=== PATIENT | female | born 1970 | race Two or more races ===

== ENCOUNTER 2016-10-29 21:57 | Emergency (ER) | payer BC ==
[~2016-10-29] VITALS: Ht 167.6 cm; Wt 63.5 kg
[~2016-10-29 21:57] MED LIST: GLUC-105; LANC-268; METF-370 PO; PREN-96 PO
[2016-10-29 22:02] VITALS: BP 134/84
== END 2016-10-30 03:31 | disposition left against medical advice (07) ==
LOC: ER 22:02
DX: R10.9 Unspecified abdominal pain (principal); R19.7 Diarrhea, unspecified; R11.2 Nausea with vomiting, unspecified; Z53.21 Procedure and treatment not carried out due to patient leaving prior to being seen by health care provider

== ENCOUNTER 2020-01-08 15:58 | Emergency (ER) | payer BC, OTHER ==
[~2020-01-08] VITALS: Ht 172.7 cm; Wt 90.7 kg
[2020-01-08] MEDS ORDERED: SODIUM CHLORIDE 0.9% 1,000 ML IV ONE (16:06)
[2020-01-08 16:57] LABS: Basophils # (auto) 0 10 ^3/uL (0-0.2); Basophils % (auto) 0.4 % (0.0-2.0); Eosinophils # (auto) 0.2 10 ^3/uL (0-0.8); Eosinophils % (auto) 2.7 % (0.0-7.0); Hemoglobin 13.7 g/dL (12.2-16.2); Lymphocytes # (auto) 2.9 10 ^3/uL (0.4-5.4); Lymphocytes % (auto) 38.3 % (10.0-50.0); Mean Corpuscular Hemoglobin 28.9 pg (28.0-32.0); Mean Corpuscular Hgb Conc. 33.5 g/dL (32.0-36.0); Mean Corpuscular Volume 86.3 fL (80.0-100.0); Monocytes # (auto) 0.5 10 ^3/uL (0-1.3); Monocytes % (auto) 6.2 % (0.0-12.0); Neutrophils % (auto) 52.4 % (37.0-80.0); Platelet Count (auto) 208 10^3/uL (140-450); Red Blood Cells 4.75 10^6/uL (4.0-5.20); Red Cell Distribution Width 13.6 % (11.8-14.3); White Blood Cell 7.5 10^3/uL (4.4-10.8)
[2020-01-08 17:11] LABS: Anion Gap 7 (5-15); Blood Urea Nitrogen 14 mg/dL (7-18); Calcium 8.7 mg/dL (8.5-10.1); Carbon Dioxide 24 mmol/L (21-32); Chloride 108 mmol/L (98-107); Glucose 94 mg/dL (74-106); Potassium 3.4 mmol/L (3.5-5.1); Sodium 139 mmol/L (136-145)
[2020-01-08 17:16] LABS: Alanine Aminotransferase 26 U/L (13-56); Alkaline Phosphatase 78 U/L (45-117); Aspartate Aminotransferase 19 U/L (15-37); BUN/Creatinine Ratio 17.7; Bilirubin, Total 0.4 mg/dL (0.2-1.0); GFR African American 99 mL/min; GFR Non-African American 82 mL/min; Total Protein 7.6 g/dL (6.4-8.2)
[2020-01-08] MEDS ORDERED: ASPirin 81 mg TAB PO ONE (17:30)
[2020-01-08] MEDS ORDERED: POTASSIUM EFFERVESENT TAB 25 MEQ PO ONE (17:30)
[2020-01-08] MEDS: LORazepam 2MG/ML-1ML VIAL IV ONE (17:58)
[2020-01-08 17:59] VITALS: BP 158/84
[2020-01-08] MEDS ORDERED: LORazepam 2MG/ML-1ML VIAL IM ONE (18:00)
== END 2020-01-08 18:05 | disposition home or self-care (01) ==
LOC: EDBD 15:58 → ER 15:58
DX: R07.89 Other chest pain (principal); E87.6 Hypokalemia; F41.9 Anxiety disorder, unspecified; E11.9 Type 2 diabetes mellitus without complications; Z79.899 Other long term (current) drug therapy
CPT/HCPCS: 36415; 71045; 80053; 84484; 85025; 93005; 96372; 99285; J2060

== ENCOUNTER 2023-10-19 15:22 | Emergency (ER) | payer OTHER ==
[~2023-10-19] VITALS: Ht 175.3 cm; Wt 77.0 kg
[2023-10-19 16:34] LABS: Basophils # (auto) 0 10 ^3/uL (0-0.2); Basophils % (auto) 0.6 % (0.0-2.0); Eosinophils # (auto) 0.1 10 ^3/uL (0-0.8); Eosinophils % (auto) 2.2 % (0.0-7.0); Hematocrit 42.8 % (36.0-46.0); Hemoglobin 14.5 g/dL (12.2-16.2); Lymphocytes # (auto) 2.6 10 ^3/uL (0.4-5.4); Lymphocytes % (auto) 41.4 % (10.0-50.0); Mean Corpuscular Hemoglobin 28.8 pg (28.0-32.0); Mean Corpuscular Hgb Conc. 33.9 g/dL (32.0-36.0); Mean Corpuscular Volume 84.8 fL (80.0-100.0); Monocytes # (auto) 0.4 10 ^3/uL (0-1.3); Monocytes % (auto) 6.1 % (0.0-12.0); Neutrophils # (auto) 3.1 10 ^3/uL (1.6-8.6); Neutrophils % (auto) 49.7 % (37.0-80.0); Nucleated Red Blood Cells % 0.1 %; Red Blood Cells 5.04 10^6/uL (4.0-5.20); Red Cell Distribution Width 13.3 % (11.8-14.3); White Blood Cell 6.2 10^3/uL (4.4-10.8)
[2023-10-19 16:49] LABS: Alanine Aminotransferase 39 U/L (7-40); Albumin 4.7 g/dL (3.2-4.8); Alkaline Phosphatase 127 U/L (46-116); Anion Gap 7 (5-15); Aspartate Aminotransferase 17 U/L (13-40); BUN/Creatinine Ratio 15.7 (10.0-20.0); Blood Urea Nitrogen 14 mg/dL (9-23); Calcium 10.3 mg/dL (8.5-10.1); Carbon Dioxide 27 mmol/L (20-30); Chloride 103 mmol/L (98-107); Glucose 326 mg/dL (74-106); Potassium 3.9 mmol/L (3.5-5.1); Sodium 137 mmol/L (136-145)
[2023-10-19 16:50] LABS: Bilirubin, Total 0.6 mg/dL (0.2-1.0); Total Protein 7.5 g/dL (5.7-8.2)
[2023-10-19] MEDS: SODIUM CHLORIDE 0.9% 1,000 ML IV ONE (17:25)
[2023-10-19 17:27] VITALS: BP 140/87; PULSE 73; RESP 20; TEMP 98.1; O2SAT 97
[2023-10-19] MEDS: diphenhdrAMINE HCL 50 MG/1 ML VL IV ONE (17:44)
[2023-10-19] MEDS: METOCLOPRAMIDE HCL 5MG/ml INJ 2ml VIAL IV ONE (17:45)
[2023-10-19 18:10] LABS: Urine Bacteria FEW /hpf (None Seen); Urine Blood Negative /uL (Negative); Urine Clarity Clear (Clear); Urine Color Light-Yellow (Yellow); Urine Protein, UAD Negative (Negative); Urine Urobilinogen Normal (Negative); Urine WBC 1 /hpf (0 - 5)
[2023-10-19] MEDS: KETOROLAC TROMETH 30 MG/ML 1ML VIAL IV ONE (18:32)
[2023-10-19] MEDS: MAGNESIUM SULFATE 1GM/100ML 100 ML IV ONE (18:34)
[2023-10-19] MEDS ORDERED: NITR-87 PO (19:43)
[2023-10-19] MEDS: cefTRIAXone 1GM/50ML D5W 50 ML IV ONE (20:27)
== END 2023-10-19 20:56 | disposition home or self-care (01) ==
LOC: ER 15:22
DX: E11.65 Type 2 diabetes mellitus with hyperglycemia (principal); N39.0 Urinary tract infection, site not specified; R51.9 Headache, unspecified; E78.5 Hyperlipidemia, unspecified; Z98.890 Other specified postprocedural states; Z79.899 Other long term (current) drug therapy
CPT/HCPCS: 36415; 70450; 80053; 81001; 82010; 82962; 83605; 84443; 84484; 85025; 96361; 96365; 96375; 99285; J0696; J1200; J2765; J3475; J7030